=== PATIENT | female | born 1960 | race Caucasian/White ===

== ENCOUNTER 2022-02-06 18:36 | Inpatient (IN) | payer MEDICARE, MEDICAID ==
[~2022-02-06] VITALS: Ht 152.4 cm; Wt 79.3 kg
[2022-02-06 22:50] LABS: HEMOGLOBIN 10.2 gm/dl (12.3-15.3); RED BLOOD COUNT 3.78 M/UL (4.00-5.10); WHITE BLOOD COUNT 11.4 K/UL (4.5-11.0)
[2022-02-06 23:33] LABS: BUN/CREATININE RATIO 31 (0-10)
[2022-02-07] MEDS ORDERED: LOSARTAN POTAS100 MG PO (02:30)
[2022-02-07] MEDS ORDERED: GABAPENTIN600 MG PO (02:30)
[2022-02-07] MEDS ORDERED: ATORVASTATIN CA20 MG PO (02:30)
--- NOTE | 2022-02-07 09:08 | NUR ---
PATIENT TAKEN TO THE EYE PHYSICIAN WITH RN. WILD. FAMILY WAITING IN ROOM.
[2022-02-07] MEDS ORDERED: IBUPROFEN800 MG PO (14:01)
[2022-02-07] MEDS ORDERED: ZYRTEC10 MG PO (14:02)
[2022-02-07 16:48] LABS: HEMOGLOBIN 10.1 gm/dl (12.3-15.3); RED BLOOD COUNT 3.76 M/UL (4.00-5.10); WHITE BLOOD COUNT 12.9 K/UL (4.5-11.0)
[2022-02-07 18:04] LABS: BUN/CREATININE RATIO 30 (0-10)
[2022-02-07] MEDS ORDERED: HYDROCODON-ACE1 EAC6 PO (22:52)
== END 2022-02-07 18:40 | disposition short-term general hospital (02) | DRG 281 ==
LOC: PROG CARE 19:07
PROVIDERS: Internal Medicine; Internal Medicine Interventional Cardiology; ADMIT Internal Medicine
PROC: 4A023N7 Measurement of Cardiac Sampling and Pressure, Left Heart, Percutaneous Approach (ICD-10-PCS; principal; 2022-02-07)
PROC: B2111ZZ Fluoroscopy of Multiple Coronary Arteries using Low Osmolar Contrast (ICD-10-PCS; 2022-02-07)
PROC: 4A033BC Measurement of Arterial Pressure, Coronary, Percutaneous Approach (ICD-10-PCS; 2022-02-07)
DX: I22.2 Subsequent non-ST elevation (NSTEMI) myocardial infarction (principal); C85.90 Non-Hodgkin lymphoma, unspecified, unspecified site; I21.4 Non-ST elevation (NSTEMI) myocardial infarction; I10 Essential (primary) hypertension; Z20.822 Contact with and (suspected) exposure to COVID-19; E78.5 Hyperlipidemia, unspecified; N30.90 Cystitis, unspecified without hematuria; Z82.49 Family history of ischemic heart disease and other diseases of the circulatory system; Z90.49 Acquired absence of other specified parts of digestive tract; Z90.710 Acquired absence of both cervix and uterus; Z79.01 Long term (current) use of anticoagulants; Z79.82 Long term (current) use of aspirin
CPT/HCPCS: 36415; 36600; 71045; 80048; 80061; 81001; 82550; 82553; 83880; 84132; 84484; 85025; 85027; 85610; 85730; 93005; 93571; 99152; 99153; C1769; C1887; J0461; J1170; J1644; J2250; J2405; J3010; J7040; Q9967